=== PATIENT | female | born 1995 | race Native Hawaiian/Other Pacific Islander ===

== ENCOUNTER 2017-03-09 12:58 | Emergency (ER) | payer OTHER ==
[~2017-03-09] VITALS: Ht 162.6 cm; Wt 47.2 kg
[2017-03-09 13:12] VITALS: TEMP 98
[2017-03-09 14:41] LABS: PLATELET COUNT 267 K/uL (152-353)
[2017-03-09 14:47] LABS: POTASSIUM 3.7 mmol/L (3.6-5.2); SODIUM 132 mmol/L (136-145)
[2017-03-09 16:08] VITALS: BP 101/59
== END 2017-03-09 16:18 | disposition home or self-care (01) ==
LOC: ED 12:58
PROVIDERS: Emergency Medicine
DX: R11.2 Nausea with vomiting, unspecified (principal); K52.9 Noninfective gastroenteritis and colitis, unspecified; E86.0 Dehydration
CPT/HCPCS: 36415; 80053; 81000; 81025; 82150; 83690; 85027; 86318; 96360; 96375; 99283; J2405

== ENCOUNTER 2019-08-25 13:29 | Emergency (ER) | payer OTHER ==
[~2019-08-25] VITALS: Ht 162.6 cm; Wt 59.0 kg
[2019-08-25 13:38] VITALS: BP 126/86; TEMP 97.3
== END 2019-08-25 14:40 | disposition home or self-care (01) ==
LOC: ED 13:29
DX: J02.8 Acute pharyngitis due to other specified organisms (principal)
CPT/HCPCS: 87651; 99282